=== PATIENT | male | born 1965 | race Caucasian/White ===

== ENCOUNTER → 2023-01-05 07:51 | Outpatient (BNVA) | payer OTHER, SELFPAY | PROVIDERS: Visit Provider Physician Assistant ==

== ENCOUNTER 2023-01-28 08:14 | Outpatient (AMB) | payer OTHER, SELFPAY ==
--- NOTE | 2023-01-28 08:08 | A.OFFVIS_ITS ---
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 Allergies No Known Allergies Allergy (Verified 01/28/23 08:08) Medication List - Last Reconciled 01/28/23 by Caesar Hernandez MD ascorbate calcium (vitamin C) 500 mg PO DAILY aspirin 81 mg PO DAILY escitalopram oxalate 20 mg PO DAILY hm-hns-etids acid-lutein 200-137.5 mcg (Adult Multivitamin (w-lutein)) tabs PO omega 7-zpi-lxp-fish oil 60-90-500 mg (Fish Oil) 1 cap PO DAILY valsartan-hydrochlorothiazide 320-25 mg 1 tab PO DAILY HPI 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 HPI Details Start time: 8.00am, End time: 9.04am ?I spent 59 minutes speaking with the patient on the phone plus an additional 5 minutes reviewing and updating records for a total of 64 minutes HPI Comments History of Present Illness Details Previous weight loss efforts: self diets Wakes up: 5.45am, Sleeps: 9pm Breakfast: 7am eggs and sausages from [employer] Lunch: 12pm (subway sandwich, chicken salad with chips) Dinner: 7pm (steak with vegetables, or pasta, or chicken) Snacks: 5pm (popcorn, banana), 8-9pm (yogurt) Exercise: walking outside 3-4 days per week Fluids: 3-4 8oz cups of Coffee ([employer]), tea: none, soda: none, juice: orange juice x1-2/wk, ETOH: beer 1/wk PFSH Medical History (Updated 01/28/23 @ 08:35 by Caesar Hernandez MD) Hypertension Depression Sleep apnea treated with continuous positive airway pressure (CPAP) Morbid obesity Surgical History (Updated 01/05/23 @ 09:22 by Joann Allen CMA) History of repair of ACL Hx of foot surgery Hx of appendectomy Hx of cholecystectomy Social History (Updated 01/05/23 @ 09:22 by Joann Allen CMA) Alcohol intake: never Patient Tobacco Use Status: Never used Tobacco Assessment & Plan Assessment & Plan (1) Morbid obesity: Code(s): E66.01 - Morbid (severe) obesity due to excess calories Plan: 1.? Plan for lap sleeve gastrectomy. If diaphragmatic or ventral hernias are present at time of surgery, these will be repaired laparoscopically as well. Risks and complications were discussed in detail including possible conversion to an open procedure, anastomotic leak, bleeding requiring transfusion, small piyush wel obstruction, , DVT and pulmonary embolism, cardiac, or pulmonary complications, as termite renewal inspector complications such as anastomotic ulcer, insufficient weight loss and vitamin deficiencies. I emphasized the importance of close follow-up, adherence to instructions and good communication. 2. Nutritional counseling. Start with 2 Celebrate REBUILD protein (buy at hospital gift shop or online ) shakes (TWO scoops EACH in 8oz low fat unsweetened almond milk each) at 7am-9am and 10am-12pm, 2 Celebrate protein bars (buy at hospital gift shop or online ) at 1pm-3pm and 4pm-6pm, dinner at 7pm (12 forks of protein and 12 forks of salad/vegetables). If necessary, you can eat another HALF Celebrate bar after dinner before you go to sleep at 8pm-9pm. Meal to include lean meat (beef, fish, pork, turkey, chicken), or singaporean yogurt, or egg whites, or beans with a salad with olive oil and fruits (berries, pears, apples, kiwi). Avoid salt, breads, potatoes, rice, pasta, desserts. 3. Each shake would be drunk slowly, like coffee in a period of 2 hours. 4. Cut each bar in 4 pieces and eat each piece in 30min ?to make each bar last 2 hours. 5. I emphasized the importance of measuring accurately the food portion and measure it when serving the food in plate 6. The meal portions include 12 full-size forks of meat and 12 full-size forks of salad. You always eat the meat portion but you can replace up to 6 forks for salad/vegetables with rice, potatoes or pasta, or a fruit ?if you like. The less you do it the better weight loss will be. 7. One full-size fork is what it can be scooped on the fork without falling aside and not what can be bit with the fork. Use regular forks like those you find in a typical restaurant. 8.? Please send me weight measurements as soon as possible and then once a week. Always include your diet and exercise plan. Alternatively come weekly at the office for weight checks and send me the measurements. 9. Start walking outside daily, tracking calories with a goal of 300 calories per day, daily. Goal is to burn 2000 calories per week on exercise, which means either 300 calories daily, or 400 calories 5 days per week, or 500 calories 4 days per week, or 650 calories 3 days per week. 10. Alternatively purchase a stationary bike, elliptical or treadmill at home that can track calories. Let me know if you do so I can give you an exercise plan. 11.?Goal is to lose at least 1.5-2lbs per week 12. Goal to lose 10% of your weight before surgery, which is about 36lbs. Ultimate weight goal: 321lbs before surgery 13. Please follow the diet plan exactly without any change. If you don't like something about the plan or you feel hungry you need to communicate with me so I can help you revise the plan. You should not change the plan yourself. (2) Sleep apnea treated with continuous positive airway pressure (CPAP): Code(s): G47.30 - Sleep apnea, unspecified (3) Hypertension: Code(s): I10 - Essential (primary) hypertension Orders: Orders Insulin Today E66.01 - Morbid (severe) obesity due to excess calories, G47.30 - Sleep apnea, unspecified, I10 - Essential (primary) hypertension Complete Blood Count Auto Diff Today E66.01 - Morbid (severe) obesity due to excess calories, G47.30 - Sleep apnea, unspecified, I10 - Essential (primary) hypertension Vitamin B12 and Folate Today E66.01 - Morbid (severe) obesity due to excess calories, G47.30 - Sleep apnea, unspecified, I10 - Essential (primary) hypertension Comprehensive Met. Panel Today E66.01 - Morbid (severe) obesity due to excess calories, G47.30 - Sleep apnea, unspecified, I10 - Essential (primary) hypertension Vitamin B1 Today E66.01 - Morbid (severe) obesity due to excess calories, G47.30 - Sleep apnea, unspecified, I10 - Essential (primary) hypertension Ferritin Today E66.01 - Morbid (severe) obesity due to excess calories, G47.30 - Sleep apnea, unspecified, I10 - Essential (primary) hypertension PTHI Today E66.01 - Morbid (severe) obesity due to excess calories, G47.30 - Sleep apnea, unspecified, I10 - Essential (primary) hypertension TSH reflex Free T4 Today E66.01 - Morbid (severe) obesity due to excess calories, G47.30 - Sleep apnea, unspecified, I10 - Essential (primary) hypertension Vitamin D 25-OH Total Today E66.01 - Morbid (severe) obesity due to excess calories, G47.30 - Sleep apnea, unspecified, I10 - Essential (primary) hypertension US abdomen comp w elastography Today E66.01 - Morbid (severe) obesity due to excess calories, G47.30 - Sleep apnea, unspecified, I10 - Essential (primary) hypertension FL upper GI w air Today E66.01 - Morbid (severe) obesity due to excess calories, G47.30 - Sleep apnea, unspecified, I10 - Essential (primary) hypertension Lipid Panel Today E66.01 - Morbid (severe) obesity due to excess calories, G47.30 - Sleep apnea, unspecified, I10 - Essential (primary) hypertension IRON PROFILE Today E66.01 - Morbid (severe) obesity due to excess calories, G47.30 - Sleep apnea, unspecified, I10 - Essential (primary) hypertension Zinc Today E66.01 - Morbid (severe) obesity due to excess calories, G47.30 - Sleep apnea, unspecified, I10 - Essential (primary) hypertension Vitamin A Today E66.01 - Morbid (severe) obesity due to excess calories, G47.30 - Sleep apnea, unspecified, I10 - Essential (primary) hypertension C Reactive Protein Today E66.01 - Morbid (severe) obesity due to excess calories, G47.30 - Sleep apnea, unspecified, I10 - Essential (primary) hypertension H Pylori Breath Test Today E66.01 - Morbid (severe) obesity due to excess calories, G47.30 - Sleep apnea, unspecified, I10 - Essential (primary) hypertension Hemoglobin A1c Today E66.01 - Morbid (severe) obesity due to excess calories, G47.30 - Sleep apnea, unspecified, I10 - Essential (primary) hypertension XR chest 2V Today E66.01 - Morbid (severe) obesity due to excess calories, G47.30 - Sleep apnea, unspecified, I10 - Essential (primary) hypertension ECG 12 lead EKG Today E66.01 - Morbid (severe) obesity due to excess calories, G47.30 - Sleep apnea, unspecified, I10 - Essential (primary) hypertension Referrals Nutrition/Dietitian Referral E66.01 - Morbid (severe) obesity due to excess calories, G47.30 - Sleep apnea, unspecified, I10 - Essential (primary) hypertension Behavioral Health Referral E66.01 - Morbid (severe) obesity due to excess calories, G47.30 - Sleep apnea, unspecified, I10 - Essential (primary) hypertension Telehealth Telehealth Location of provider rendering services: practice address Location of patient: address on file Patient Identification confirmed using: Name, : Yes Telehealth method: voice only Patient verbally consented to treatment: Yes Patient verbally consented to billing insurance company: Yes Patient informed of any privacy concerns related to visit: Yes Minutes spent on Phone/Video with Pt.: 64 Coding Level of Care Code Tele New Pt Level 5 (11815) Diagnoses Morbid obesity E66.01 Sleep apnea treated with continuous positive airway pressure (CPAP) G47.30 Hypertension I10 Time Spent (min) 64
[2023-01-28 08:35] VITALS: BMI 48.5
== END 2023-01-28 09:05 | disposition home or self-care (01) ==
LOC: HO.HBS 08:14
PROVIDERS: Visit Provider Surgery
DX: E66.01 Morbid (severe) obesity due to excess calories (principal); Z68.42 Body mass index [BMI] 45.0-49.9, adult; G47.30 Sleep apnea, unspecified; I10 Essential (primary) hypertension
CPT/HCPCS: 99443

== ENCOUNTER → 2023-01-28 08:14 | Outpatient (BNVA) | payer OTHER, SELFPAY | PROVIDERS: Visit Provider Surgery ==

== ENCOUNTER 2023-01-30 07:33 | Outpatient (REF) | payer OTHER, SELFPAY ==
--- NOTE | ~2023-01-30 | XR_ITS ---
EXAMINATION: XR CHEST CLINICAL INFORMATION: Obesity COMPARISON: None available. TECHNIQUE: 2 views of the chest were obtained. FINDINGS: No significant abnormality is noted involving the heart, lungs, mediastinum, bony thorax or soft tissues. XR/XR chest 2V IMPRESSION: Unremarkable examination.
[2023-01-30 07:51] LABS: MANUAL DIFF FLAG NO
--- NOTE | 2023-01-30 07:51 | ECG_ITS ---
Test Reason : morbid obesity Blood Pressure : / mmHG Vent. Rate : 048 BPM Atrial Rate : 048 BPM P-R Int : 226 ms QRS Dur : 110 ms QT Int : 476 ms P-R-T Axes : 043 006 041 degrees QTc Int : 425 ms Sinus bradycardia with 1st degree A-V block Otherwise normal ECG No previous ECGs available Referred By: Caesar Hernandez Electronically Signed By:KELVIN STEVEN
[2023-01-30 08:11] LABS: Basophils Absolute Auto 0.1 X10*3/uL (0.0-0.2); Eosinophils Absolute Auto 0.2 X10*3/uL (0.0-0.4); Eosinophils Percent Auto 2.6 % (0-4); Hematocrit 42.9 % (42.0-52.0); Hemoglobin 14.8 g/dl (14.0-18.0); Imm Gran Abs Auto 0.03 X10*3/uL (0.00-0.03); Imm Gran Pct Auto 0.5 % (0.0-0.4); Lymphocytes Absolute Auto 1.3 X10*3/uL (1.2-4.9); Lymphocytes Percent Auto 21.8 % (20-40); Mean Corpuscular HGB Conc 34.5 g/dl (31.0-36.0); Mean Corpuscular Hemoglobin 31.4 pg (27.0-33.0); Mean Corpuscular Volume 91.1 fL (80.0-98.0); Mean Platelet Volume 9.9 fL (9.4-12.4); Monocytes Absolute Auto 0.5 X10*3/uL (0.1-1.2); Monocytes Percent Auto 8.8 % (2-11); Neutrophils Absolute Auto 3.8 x10*3/uL (2.0-8.3); Neutrophils Percent Auto 65.3 % (45-73); Platelet Count 171 X10*3/uL (160-400); Red Blood Count 4.71 X10*6/uL (4.60-5.80); Red Cell Distribution Width 12.6 % (11.0-16.0); White Blood Count 5.8 X10*3/uL (4.8-10.8)
[2023-01-30 08:21] LABS: Estimated Average Glucose 97 mg/dL
[2023-01-30 08:54] LABS: Alanine Aminotransferase 40 U/L (0-40); Albumin Level 4.4 g/dL (3.5-5.0); Alkaline Phosphatase 56 U/L (39-117); Anion Gap 12 (12-20); Aspartate Amino Transferase 26 U/L (5-37); Bilirubin Total 0.6 mg/dL (0.0-1.0); Blood Urea Nitrogen 21 mg/dL (9-16); C Reactive Protein 0.51 mg/dL (< or = 0.50); Calcium 9.6 mg/dL (8.4-10.2); Carbon Dioxide 28 mmol/L (22-29); Chloride 105 mmol/L (96-108); Cholesterol 187 mg/dL (<200); Estimated Glomerular Filt Rate > 60; Glucose Random 105 mg/dL (60-115); HDL Cholesterol 39 mg/dL (>40); Iron 112 mcg/dL (45-160); LDL Cholesterol Calculated 111 mg/dL (<100); Percent Iron Saturation 41 % (15-50); Sodium 141 mmol/L (135-145); Total Iron Binding Capacity 276 mcg/dL (228-428); Triglycerides 186 mg/dL (<150); Unsaturated Iron Binding 164 ug/dL
[2023-01-30 09:14] LABS: Ferritin 710 ng/mL (20-250); Insulin 32 uU/mL (2-29); TSH reflex Free T4 2.76 uIU/mL (0.32-4.0); Vitamin D 25-OH Total 40.5 ng/mL (>30)
[2023-01-30 09:17] LABS: Folate 12.1 ng/mL (> or = 4.0); Vitamin B12 459 pg/mL (200-900)
[2023-02-02 13:59] LABS: Calcium (PTHI) 9.5 mg/dL (8.6-10.3); PTHI 55 pg/mL (16-77)
[2023-02-04 03:23] LABS: Zinc 96 mcg/dL (60-130)
[2023-02-04 21:13] LABS: Vitamin A 87 mcg/dL (38-98)
[2023-02-07 15:18] LABS: Vitamin B1 23 nmol/L (8-30)
== END 2023-01-30 07:34 | disposition home or self-care (01) ==
LOC: HO.LAB 07:33
PROVIDERS: PCP Nurse Practitioner; Visit Provider Surgery
DX: E66.01 Morbid (severe) obesity due to excess calories (principal); G47.30 Sleep apnea, unspecified; I10 Essential (primary) hypertension
CPT/HCPCS: 36415; 71046; 80053; 80061; 82306; 82607; 82728; 82746; 83036; 83525; 83540; 83970; 84425; 84443; 84590; 84630; 85025; 86140; 93005